=== PATIENT | female | born 1960 | race Caucasian/White ===

== ENCOUNTER → 2017-03-14 | Outpatient (CLI) | payer OTHER | LOC: FIMAGING 15:28 | PROVIDERS: ATTEND Obstetrics & Gynecology Gynecology | DX: Z12.31 Encounter for screening mammogram for malignant neoplasm of breast (principal); Z80.3 Family history of malignant neoplasm of breast | CPT/HCPCS: G0202 ==

== ENCOUNTER → 2018-04-23 | Outpatient (CLI) | payer OTHER | LOC: FIMAGING 15:46 | PROVIDERS: ATTEND Obstetrics & Gynecology Gynecology | DX: Z12.31 Encounter for screening mammogram for malignant neoplasm of breast (principal) ==

== ENCOUNTER 2018-05-31 22:11 | Emergency (ER) | payer OTHER ==
[2018-05-31] MEDS ORDERED: TDAP ADULT 0.5 ML INJ (BOOSTRIX) IM ONE (22:26)
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
[2018-05-31] MEDS ORDERED: LET GEL TOPICAL 1 EA SYR TP ONE (22:44)
[2018-05-31] MEDS ORDERED: SKIN ADHESIVE (DERMABOND) 1 EACH TP ONE (23:07)
[2018-05-31 23:10] VITALS: BP 126/86
== END 2018-05-31 23:43 | disposition home or self-care (01) ==
PROC: 0HQ1XZZ Repair Face Skin, External Approach (ICD-10-PCS; principal; 2018-05-31)
DX: S01.81XA Laceration without foreign body of other part of head, initial encounter (principal); S83.92XA Sprain of unspecified site of left knee, initial encounter; S63.616A Unspecified sprain of right little finger, initial encounter; V17.0XXA Pedal cycle driver injured in collision with fixed or stationary object in nontraffic accident, initial encounter; Y93.55 Activity, bike riding